=== PATIENT | female | born 1965 | race Two or more races ===

== ENCOUNTER 2023-06-19 12:58 | Emergency (ER) | payer BC ==
[~2023-06-19] VITALS: Ht 165.1 cm; Wt 72.6 kg
[2023-06-19] MEDS ORDERED: KETO10TA2 PO (13:36)
== END 2023-06-19 14:11 | disposition home or self-care (01) ==
LOC: ER 12:58
DX: S82.64XA Nondisplaced fracture of lateral malleolus of right fibula, initial encounter for closed fracture (principal); W18.30XA Fall on same level, unspecified, initial encounter; Y93.89 Activity, other specified; Y92.89 Other specified places as the place of occurrence of the external cause; Y99.9 Unspecified external cause status; Z88.8 Allergy status to other drugs, medicaments and biological substances